=== PATIENT | male | born 1980 | race Caucasian/White ===

== ENCOUNTER 2018-10-09 08:12 | Emergency (ER) | payer SELFPAY ==
[~2018-10-09] VITALS: Ht 182.9 cm; Wt 86.2 kg
[2018-10-09] MEDS ORDERED: AMOXICILLIN500 MG PO (09:09)
[2018-10-09] MEDS ORDERED: NASONEX17 GM NAS (09:09)
== END 2018-10-09 09:17 | disposition home or self-care (01) ==
LOC: ED 08:12
DX: H66.92 Otitis media, unspecified, left ear (principal); F17.200 Nicotine dependence, unspecified, uncomplicated
CPT/HCPCS: 99282

== ENCOUNTER 2018-12-15 17:52 | Emergency (ER) | payer OTHER ==
[~2018-12-15] VITALS: Ht 182.9 cm; Wt 92.2 kg
[~2018-12-15 17:52] MED LIST: AMOXICILLIN500 MG PO; NASONEX17 GM NAS
[2018-12-15] MEDS ORDERED: IBUPROFEN800 MG PO (18:05)
[2018-12-15] MEDS ORDERED: VALIUM10 MG PO (18:56)
== END 2018-12-15 19:00 | disposition home or self-care (01) ==
LOC: ED 17:52
DX: S39.012A Strain of muscle, fascia and tendon of lower back, initial encounter (principal); M54.41 Lumbago with sciatica, right side; F17.200 Nicotine dependence, unspecified, uncomplicated; X50.0XXA Overexertion from strenuous movement or load, initial encounter
CPT/HCPCS: 96372; 99283-25; J1885